=== PATIENT | female | born 1955 | race Caucasian/White ===

== ENCOUNTER 2022-06-03 09:55 | Outpatient (CLI) | payer MEDICARE, MEDICAID, SELFPAY | END 2022-06-03 09:56 | disposition home or self-care (01) | LOC: ANHBWCAUD 09:58 | PROVIDERS: PCP Otolaryngology; Referring Provider Otolaryngology; Visit Provider Otolaryngology | DX: H90.3 Sensorineural hearing loss, bilateral (principal) | CPT/HCPCS: 92557; 92567 ==